=== PATIENT | female | born 1960 | race Caucasian/White ===

== ENCOUNTER 2017-10-12 17:28 | Emergency (ER) | payer OTHER ==
[2017-10-12 17:34] VITALS: BP 131/81; PULSE 77; TEMP 98.7; BMI 39.4
--- NOTE | 2017-10-12 17:37 | PDOC ---
Rapid Medical Evaluation Chief Complaint: Pain Time Seen by Provider: 10/12/17 17:31 Medical Evaluation: Allergies Allergy/AdvReac Type Severity Reaction Status Date / Time celecoxib [From Celebrex] Allergy stomach Verified 01/10/17 09:43 pain corn Allergy diarrhea Verified 01/10/17 09:43 duloxetine HCl Allergy Verified 05/31/16 16:37 [From Cymbalta] fentanyl [From Duragesic] Allergy Rash Verified 01/10/17 09:43 gabapentin [From Neurontin] Allergy Verified 05/31/16 16:37 ibuprofen Allergy Swelling Verified 01/10/17 09:43 milk Allergy diarrhea Verified 01/10/17 09:43 NSAIDS (Non-Steroidal Allergy Difficulty Verified 05/31/16 17:55 Anti-Inflamma Breathing paroxetine HCl [From Paxil] Allergy Rash Verified 01/10/17 09:43 pregabalin [From Lyrica] Allergy Rash Verified 05/31/16 17:55 tapentadol HCl [From Nucynta] Allergy Rash Verified 01/10/17 09:43 wheat Allergy diarrhea Verified 01/10/17 09:43 acetaminophen AdvReac swelling, Verified 01/10/17 09:43 nausea, diarrhea baclofen AdvReac headache, Verified 02/18/17 11:15 incontinence 10/12/17 17:32 I have performed a brief in-person evaluation of this patient. The patient presents with a chief complaint of: RLQ pain to back x 2 hours, nausea since Apr "because stomach lining is messed up", 8/10 pain, hx of ovarian cysts, gastritis hx of hysterectomy, appendectomy, cholecystectomy, 3 breast reductions Pertinent physical exam findings: no apparent distress I have ordered the following: CBC, CMP, lipase, UA, UCx The patient will proceed to the ED for further evaluation. Discharge Disposition - Diagnosis Abdominal pain - Referrals - Patient Instructions - Post Discharge Activity
[2017-10-12 18:07] LABS: BASO % 0.5 % (0-2.0); EOS % 1.9 % (0-4.5); HEMATOCRIT 40.8 % (32.4-45.2); HEMOGLOBIN 13.4 GM/dL (10.7-15.3); LYMPH % 40.7 % (8-40); MCH 28.8 pg (25.7-33.7); MCHC 32.8 g/dl (32.0-36.0); MEAN CELL VOLUME 87.9 fl (80-96); MEAN PLT VOLUME 9.6 fl (7.5-11.1); MONO % 7.7 % (3.8-10.2); NEUT % 49.2 % (42.8-82.8); PLATELET COUNT 186 K/MM3 (134-434); RBC 4.64 M/mm3 (3.60-5.2); RDW 14.9 % (11.6-15.6); WHITE BLOOD COUNT 8.1 K/mm3 (4.0-10.0)
[2017-10-12 18:09] LABS: URINE APPEARANCE CLEAR; URINE BILIRUBIN NEGATIVE (NEGATIVE); URINE BLOOD 1+ (NEGATIVE); URINE COLOR STRAW; URINE GLUCOSE (UA) NEGATIVE (NEGATIVE); URINE KETONE NEGATIVE (NEGATIVE); URINE LEUK ESTERASE NEGATIVE (NEGATIVE); URINE NITRITE NEGATIVE (NEGATIVE); URINE PROTEIN NEGATIVE (NEGATIVE); URINE UROBILINOGEN NEGATIVE mg/dL (0.2-1.0)
[2017-10-12 18:12] LABS: EPI CELLS RARE /HPF (FEW)
[2017-10-12 18:46] LABS: ALBUMIN 3.6 g/dl (3.4-5.0); ALK PHOS 103 U/L (45-117); ANION GAP 7 (8-16); BILIRUBIN,TOTAL 0.2 mg/dL (0.2-1.0); BLOOD UREA NITROGEN 9 mg/dL (7-18); CALCIUM 8.7 mg/dL (8.5-10.1); CHLORIDE 105 mmol/L (98-107); CO2 27 mmol/L (21-32); CREATININE 0.7 mg/dL (0.55-1.02); GLUCOSE,RANDOM 111 mg/dL (74-106); POTASSIUM 3.9 mmol/L (3.5-5.1); SGOT/AST 16 U/L (15-37); SGPT/ALT 24 U/L (12-78); SODIUM 139 mmol/L (136-145)
== END 2017-10-12 19:33 | disposition left against medical advice (07) ==
LOC: JER 17:28
DX: R10.84 Generalized abdominal pain (principal); Z87.19 Personal history of other diseases of the digestive system; Z87.42 Personal history of other diseases of the female genital tract
CPT/HCPCS: 36415; 80053; 81003; 81015; 83690; 85025; 87086; 99281-25

== ENCOUNTER → 2018-07-24 | Day surgery (SDC) | payer OTHER ==
--- NOTE | 2018-07-25 18:32 | PATH ---
Surgical Pathology Report Patient Name: REBEKA DIEHL [facility]. Rec. #: [id number] /Age/Gender: 1960 (Age: 58) / F Account: [id number] Location: [facility] Taken: 07/24/2018 Received: 07/24/2018 Reported: 07/25/2018 Physicians: Monica Arvizu M.D. Specimen(s) Received 2.2 CM MASS LEFT BREAST CORE 4:00 Clinical History History of breast breast reduction 18 years ago Palpable mass Ultrasound findings: Suspicious Final Diagnosis BREAST, LEFT, 4:00, ULTRASOUND GUIDED CORE BIOPSY: INVASIVE DUCTAL CARCINOMA, POORLY DIFFERENTIATED, AT LEAST 1.2 CM IN THIS MATERIAL. Results of Estrogen Receptor (ER) and Progesterone Receptor (OR) studies performed on block "1" at [facility] are as follows: ER (clone [id number] mouse monoclonal antibody by Leica): 0% nuclear staining (Negative). OR (clone16 mouse monoclonal antibody by Leica): 0% nuclear staining (Negative). Comment: Immunohistochemical stain performed and interpreted at [facility] show E-cadherin is positive, supportive of ductal phenotype. Results of Her2 (IHC) & Ki-67 studies are pending and will be reported separately. Findings discussed with Nurse Delano. Positive and negative controls (internal if applicable) show appropriate results. Formalin fixation and cold ischemic times are within current ASCO/CAP recommendations for ER, OR and Her2 testing. Electronically Signed Blanquita Milan M.D. Addendum Reported: 07/31/2018 Addendum Diagnosis Results of Her2 (IHC) & Ki-67 studies performed on block "1" at [place], [place] ([id number]) are as follows: Her2 IHC (EP3 from [employer], formerly known as [id number], using Quinn Polymer Refine detection kit): 1+ (Negative). Ki-67: ~65-70% (High proliferative index). Positive and negative controls (internal if applicable) show appropriate results. Blanquita Milan M.D. Gross Description Received in formalin labeled "left breast 4:00," are 6 jeffers-yellow, cylindrical portions of fibroadipose tissue ranging from 0.4-1.7 cm in length and averaging 0.1 cm in diameter. The specimen is submitted in toto in one cassette. Time to formalin fixation: Less than one minute Total formalin fixation time: Approximately 9 hours. 07/24/201807/24/2018
== END | disposition home or self-care (01) ==
LOC: JRADUS-SUR 07:36 → JRADUS 07:36
PROVIDERS: ATTEND Nurse Practitioner Family
PROC: 0HBU3ZX Excision of Left Breast, Percutaneous Approach, Diagnostic (ICD-10-PCS; principal; 2018-07-24)
DX: C50.912 Malignant neoplasm of unspecified site of left female breast (principal)
CPT/HCPCS: 19083; 87899; 88305-TC; 88342-TC; A4648

== ENCOUNTER 2018-08-09 05:23 | Day surgery (SDC) | payer OTHER ==
[2018-08-08 11:38] VITALS: BMI 35.8
[2018-08-09] MEDS ORDERED: ISOSULFAN BLUE 10 MG/ML VIAL SQ ONE (11:53)
[2018-08-09] MEDS ORDERED: LIDOCAINE HCL 1%, 10 MG/ML (20ML VIAL) ONE (11:53)
[2018-08-09] MEDS ORDERED: LIDOCAINE HCL/PF 2% SDV 5ML VIAL ONE (12:49)
[2018-08-09] MEDS ORDERED: PROPOFOL 20 ML ONE ×2 (12:49)
[2018-08-09] MEDS ORDERED: ceFAZolin SODIUM 1 GM VIAL ONE (12:49)
[2018-08-09] MEDS ORDERED: MIDAZOLAM HCL 2 MG/2 ML SINGLE DOSE VIAL ONE (12:49)
[2018-08-09] MEDS ORDERED: ceFAZolin SODIUM 1 GM VIAL IVPB ONE (13:10)
[2018-08-09] MEDS ORDERED: METHYLENE BLUE 1% 10 MG/1 ML VIAL IVPUSH ONE (13:30)
[2018-08-09] MEDS ORDERED: DEXAMETHASONE SOD PHOSPHATE 4 MG/1 ML VIAL ONE (13:51)
[2018-08-09] MEDS ORDERED: LIDOCAINE HCL 1%, 10 MG/ML (20ML VIAL) NR ONE (14:29)
[2018-08-09] MEDS ORDERED: ONDANSETRON 4 MG/2 ML VIAL IVPUSH PRN (14:50)
[2018-08-09] MEDS ORDERED: oxyCODONE HCL 5 MG TABLET PO PRN (14:50)
[2018-08-09] MEDS ORDERED: LACTATED RINGERS SOLUTION 1,000 ML IV SCH (15:00)
[2018-08-09 16:23] VITALS: TEMP 98
[2018-08-09 17:43] VITALS: BP 112/81; PULSE 66
--- NOTE | 2018-08-10 10:10 | OP ---
DATE OF OPERATION: 08/09/2018 PREOPERATIVE DIAGNOSIS: Left breast cancer. POSTOPERATIVE DIAGNOSIS: Left breast cancer. PROCEDURE: Left breast ultrasound-guided wire localized lumpectomy and sentinel node biopsy. SURGEON: Lacie Tyler MD ANESTHESIA: General. ESTIMATED BLOOD LOSS: Minimal. COMPLICATIONS: None. This was a sterile procedure. INDICATION: Patient presented with a screening mammogram that noted a new density in the lower outer left breast. An ultrasound showed a 1.6-cm solid, irregular mass. She underwent a needle biopsy that showed ER/ RI negative, invasive duct carcinoma. I discussed her options with her. We decided on a lumpectomy and a sentinel node biopsy. The procedure was discussed with her. All of her questions answered. PROCEDURE IN DETAIL: Patient was brought to [facility] in [place]. I met her in Nuclear Medicine where technetium-labeled sulfur colloid was injected by me as 2 injections, one at the 4 o'clock areolar border and the second intradermal injection overlying the tumor in the left 4 o'clock location, 10-12 cm from the nipple. She was then brought up to the operating room, and after induction of general anesthesia, an intraoperative ultrasound was performed, and the lesion in the left 4 o'clock location, 10-12 cm from the nipple was localized with a Kopans wire. Next, 2.5 mL of methylene blue diluted with 2.5 mL of injectable saline was injected by me into the left subareolar plexus. The breast was massaged for 5 minutes. The left breast and axilla were then prepped and draped in usual sterile fashion. A 4-cm incision was made in the left axilla, carried down to the clavipectoral fascia to identify 2 lymph nodes. One of them was blue and hot. The other was hot but not blue. This was sent as 1 specimen; however, sentinel lymph node number 1, blue and hot. There was no other blue dye radioactivity initially in the axilla. Therefore, once hemostasis was assured, the left breast lumpectomy was performed. A radial incision was made in the outer left breast, and the wire was used as a guide to get down to the area of interest which was excised en bloc and tagged with a long stitch lateral, short stitch superior. Grossly, I felt I was close posteriorly. Therefore, I took a new posterior margin with a stitch at the old margin. Both specimens were sent to Pathology for permanent section. I went back into the axilla. At that point, I felt there was some more radioactivity. I, therefore, excised another lymph node which ex vivo had minimal counts. Therefore, sent it as left axillary non-sentinel node. There was no other radioactivity, blue dye, or pathologic- feeling lymph nodes in the left axilla. Therefore, once hemostasis was assured, the incision was closed in a routine fashion with interrupted 3-0 Vicryl and running 4-0 Prolene. The lumpectomy incision was a large defect. Therefore, the parenchyma was approximated with interrupted 2-0 Vicryl, skin approximated with interrupted 3-0 Vicryl and running 4-0 Prolene. A sterile dressing with Tegaderm and 4 x 4's applied. She tolerated the procedure well, was extubated on the operating room table. A mammary binder was applied, and she was taken to Recovery in good condition. Anabel [id number] MTDD
--- NOTE | 2018-08-14 14:19 | PATH ---
Surgical Pathology Report Patient Name: REBEKA DIEHL [facility]. Rec. #: [id number] /Age/Gender: 1960 (Age: 58) / F Account: [id number] Location: [facility] Taken: 08/09/2018 Received: 08/10/2018 Reported: 08/14/2018 Physicians: Lacie Tyler M.D. Specimen(s) Received A: LEFT AXILLARY SENTINEL LYMPH NODE #1 B: LEFT BREAST MASS C: LEFT BREAST MASS, NEW POSTERIOR MARGIN D: LEFT AXILLARY NON SENTINEL LYMPH NODE Clinical History Left breast cancer History of reduction mammoplasty Final Diagnosis A. AXILLARY SENTINEL LYMPH NODE #1, LEFT, EXCISION: TWO LYMPH NODES NEGATIVE FOR CARCINOMA (0/2). B. BREAST, LEFT, LUMPECTOMY: INVASIVE DUCTAL CARCINOMA, POORLY DIFFERENTIATED (TUBULE SCORE: 3/3, NUCLEAR GRADE: 3/3, MITOTIC SCORE: 3/3; TOTAL LADONNA SCORE: 9/9). INVASIVE CARCINOMA MEASURES 2.2 CM IN GREATEST MICROSCOPIC DIMENSION. FOCAL DUCTAL CARCINOMA IN SITU (DCIS), SOLID AND MICROPAPILLARY TYPES, HIGH NUCLEAR GRADE WITH ASSOCIATED CENTRAL NECROSIS. NO LYMPHOVASCULAR INVASION IDENTIFIED. SURGICAL MARGINS ARE UNINVOLVED BY CARCINOMA; CARCINOMA IS 3 MM FROM CLOSEST ANTERIOR MARGIN. SEE SPECIMEN C FOR FINAL POSTERIOR MARGIN. REMAINDER OF BREAST TISSUE SHOWS FIBROCYSTIC CHANGES AND ASSOCIATED RARE MICROCALCIFICATIONS. PRIOR BIOPSY SITE CHANGES PRESENT. PATHOLOGIC STAGE (pTNM): pT2 pN0(sn). SEE INVASIVE CARCINOMA CASE SUMMARY BELOW. C. BREAST, LEFT, NEW POSTERIOR MARGIN, EXCISION: BENIGN BREAST TISSUE AND SKELETAL MUSCLE. D. AXILLARY NON-SENTINEL LYMPH NODE, LEFT, EXCISION: BENIGN FIBROADIPOSE TISSUE. NO LYMPHOID TISSUE IDENTIFIED. Comments Breast Invasive Carcinoma: Surgical Pathology Case Summary (Based on AJCC TNM 8 th edition) Procedure _X_ Excision (less than total mastectomy) Specimen Laterality _X_ Left Tumor Size _X_ Greatest dimension of largest invasive focus >1 mm (specify exact measurement) (millimeters): _22__ mm Histologic Type _X_ Invasive carcinoma of no special type (ductal, not otherwise specified) Histologic Grade (Ladonna Histologic Score) Glandular (Acinar)/Tubular Differentiation _X_ Score 3 (<10% of tumor area forming glandular/tubular structures) Nuclear Pleomorphism _X_ Score 3 Mitotic Rate _X__ Score 3 Overall Grade _X_ Grade 3 (scores of 9) Tumor Focality _X_ Single focus of invasive carcinoma Ductal Carcinoma In Situ (DCIS) _X__ DCIS is present in specimen _X_ Negative for extensive intraductal component (EIC) Margins Invasive Carcinoma Margins _X__ Uninvolved by invasive carcinoma Distance from closest margin (millimeters): 3 mm Closest margin: Anterior DCIS Margins _X__ Uninvolved by DCIS Distance from closest margin (millimeters): Widely free Regional Lymph Nodes Number of Lymph Nodes with Macrometastases (>2 mm): 0 Number of Lymph Nodes with Micrometastases (>0.2 mm to 2 mm and/or >200 cells): 0 Number of Lymph Nodes with Isolated Tumor Cells (=0.2 mm and =200 cells): 0 Number of Lymph Nodes Examined: 2 Number of [place] Nodes Examined : 2 Treatment Effect _X__ No known presurgical therapy Lymphovascular Invasion _X__ Not identified Pathologic Stage Classification (pTNM, AJCC 8th Edition) Primary Tumor (Invasive Carcinoma) (pT) _X__ pT2: Tumor >20 mm but =50 mm in greatest dimension Regional Lymph Nodes (pN) Modifier (required only if applicable) _X__ (sn): [place] node(s) evaluated. Category (pN) _X__ pN0: No regional lymph node metastasis identified or ITCs only Biomarker Studies Results of ER and OH studies performed on prior biopsy ([id number]) at [facility] are as follows: ER (clone 6F11 mouse monoclonal antibody by Leica): 0% nuclear staining (Negative). OH (clone16 mouse monoclonal antibody by [employer]): 0% nuclear staining (Negative). Results of Her2 (IHC) & Ki-67 studies performed on prior biopsy ([id number]) are as follows: Her2 IHC (EP3 from [employer], formerly known as [id number], using Quinn Polymer Refine detection kit): 1+ (Negative). Ki-67: ~65-70% (High proliferative index). Electronically Signed Blanquita Milan M.D. Gross Description A. Received in formalin labeled "left axillary sentinel lymph node #1," are 2 lymph nodes with attached fat measuring 1.0 x 0.6 x 0.4 cm and 3.4 x 2.0 x 1.0 cm. The lymph nodes are sectioned and entirely submitted in 6 cassettes as follows: 1-one bisected lymph node; 2-6-one lymph node (one bisected section each in cassettes 3/4, 5/6). B. Received in formalin, labeled "left breast lumpectomy," is a 13.0 x 9.5 x 3.8 cm. jeffers-yellow, irregular, portion of fibroadipose tissue. There is no needle localization wire present. There is a short suture marking the superior aspect and a long suture marking the lateral aspect, per the surgeon. There is no skin or nipple present. The specimen is inked as follows: superior and lateral blue; inferior green; medial yellow; anterior red; deep black. The specimen is serially sectioned from medial to lateral. Sectioning reveals a 2.2 x 2.0 x 1.6 cm jeffers, indurated mass at 0.3 cm from the anterior margin, 0.7 cm from the superior margin, 0.8 cm from the deep margin and 0.8 cm from the medial margin. There is a lewis metallic biopsy clip identified within the mass. Medication Nurse sections are submitted in 12 cassettes as follows: 1-full face section of mass; 2-3-mass with anterior margin; 4-5-mass with deep margin; 6-8-mass with medial margin; 9-10-mass with superior margin; 11-inferior margin; 12-lateral margin. Total formalin fixation time: Approximately 24 hours C. Received in formalin labeled "left breast lumpectomy new posterior margin," is a 5.0 x 3.5 x 1.5 cm portion of fibroadipose tissue with a suture marking the old margin, per the surgeon. The new margin is inked blue and the specimen is serially sectioned. The specimen is entirely and sequentially submitted in 7 cassettes. D. Received in formalin labeled "left axillary non-sentinel lymph node," is a 4.4 x 3.0 x 0.3 cm portion of yellow, lobulated adipose tissue, possibly containing a lymph node. No definite lymph node is identified. The specimen is entirely submitted in 2 cassettes. 08/10/2018 saudi08/10/2018
== END 2018-08-09 17:00 | disposition home or self-care (01) ==
LOC: JASU-SURG 05:23
PROVIDERS: ATTEND Surgery
PROC: 0HBU0ZZ Excision of Left Breast, Open Approach (ICD-10-PCS; principal; 2018-08-09 12:00)
DX: C50.912 Malignant neoplasm of unspecified site of left female breast (principal)
CPT/HCPCS: 78195-TC; 88307-TC; 94760; A9541

== ENCOUNTER 2018-10-18 09:14 | Day surgery (SDC) | payer OTHER ==
[2018-10-18 10:25] VITALS: BMI 36.3
[2018-10-18] MEDS ORDERED: PROPOFOL 20 ML ONE (10:48)
[2018-10-18] MEDS ORDERED: LIDOCAINE HCL/PF 2% SDV 5ML VIAL ONE (10:48)
[2018-10-18 12:20] VITALS: TEMP 98
[2018-10-18 12:22] VITALS: PULSE 88
[2018-10-18 12:30] VITALS: BP 125/77
--- NOTE | 2018-10-20 12:29 | PATH ---
Surgical Pathology Report Patient Name: REBEKA DIEHL [facility]. Rec. #: [id number] /Age/Gender: 1960 (Age: 58) / F Account: [id number] Location: [facility] Taken: 10/18/2018 Received: 10/18/2018 Reported: 10/20/2018 Physicians: Blanquita Méndez M.D. Specimen(s) Received A: 2ND PORTION DUODENUM B: ANTRUM C: GE JUNCTION Clinical History Abdominal pain Postoperative diagnosis: Gastritis Final Diagnosis A. SECOND PORTION OF DUODENUM, BIOPSY: DUODENAL MUCOSA WITH NO PATHOLOGIC FINDINGS. B. ANTRUM, BIOPSY: MILD CHRONIC GASTRITIS. IMMUNOSTAIN IS NEGATIVE FOR H. PYLORI ORGANISMS. C. GE JUNCTION, BIOPSY: COLUMNAR (GASTRIC CARDIA-TYPE) MUCOSA SHOWING MODERATE CHRONIC INFLAMMATION. NEGATIVE FOR INTESTINAL METAPLASIA . NO ESOPHAGEAL (SQUAMOUS) MUCOSA IS IDENTIFIED. Electronically Signed Liane Bello M.D. Gross Description A. Received in formalin, labeled "second portion of duodenum" is a jeffers, irregular portion of soft tissue measuring 0.3 cm. in greatest dimension. The specimen is submitted in toto in one cassette. B. Received in formalin, labeled "antrum" is a jeffers, irregular portion of soft tissue measuring 0.3 cm. in greatest dimension. The specimen is submitted in toto in one cassette. C. Received in formalin, labeled "GE junction" is a jeffers, irregular portion of soft tissue measuring 0.3 cm. in greatest dimension. The specimen is submitted in toto in one cassette. 10/18/2018 saudi10/18/2018
== END 2018-10-18 12:25 | disposition home or self-care (01) ==
LOC: FASU-ENDO 09:14
PROVIDERS: ATTEND Internal Medicine Gastroenterology
PROC: 0DB68ZX Excision of Stomach, Via Natural or Artificial Opening Endoscopic, Diagnostic (ICD-10-PCS; 2018-10-18)
PROC: 0DB48ZX Excision of Esophagogastric Junction, Via Natural or Artificial Opening Endoscopic, Diagnostic (ICD-10-PCS; 2018-10-18)
PROC: 0DB98ZX Excision of Duodenum, Via Natural or Artificial Opening Endoscopic, Diagnostic (ICD-10-PCS; principal; 2018-10-18 11:27)
DX: K29.50 Unspecified chronic gastritis without bleeding (principal); R10.13 Epigastric pain; R11.2 Nausea with vomiting, unspecified
CPT/HCPCS: 88305-TC; 88342-TC

== ENCOUNTER 2019-07-24 08:02 | Inpatient (IN) | payer OTHER ==
[2019-07-23 11:07] VITALS: BMI 33.9
[2019-07-24] MEDS ORDERED: MIDAZOLAM HCL 2 MG/2 ML SINGLE DOSE VIAL ONE ×3 (09:25→09:44)
[2019-07-24] MEDS ORDERED: BUPIVACAINE HCL/PF 0.25% (2.5MG/ML) 10 ML VIAL ONE (09:27)
[2019-07-24] MEDS ORDERED: DEXAMETHASONE SOD PHOSPHATE/PF 10 MG/ML SDV ONE (09:28)
[2019-07-24] MEDS ORDERED: fentaNYL CITRATE 250 MCG/5 ML VIAL ONE ×2 (09:44→13:07)
[2019-07-24] MEDS ORDERED: ceFAZolin 2 GRAM PREMIX BAG IVPB ONE (10:30)
[2019-07-24] MEDS ORDERED: HYDROmorphone HCl 2 MG/ML VIAL ONE ×2 (10:44→14:29)
[2019-07-24] MEDS ORDERED: ONDANSETRON 4 MG/2 ML VIAL ONE (11:30)
[2019-07-24] MEDS ORDERED: LIDOCAINE HCL 2% JELLY (5 ML/TUBE) ONE (11:30)
[2019-07-24] MEDS ORDERED: DEXAMETHASONE SOD PHOSPHATE 4 MG/1 ML VIAL ONE (11:30)
[2019-07-24] MEDS ORDERED: LIDOCAINE HCL/PF 2% SDV 5ML VIAL ONE (11:30)
[2019-07-24] MEDS ORDERED: hydrALAZINE HCL 20 MG/ML VIAL ONE (11:30)
[2019-07-24] MEDS ORDERED: METOPROLOL TARTRATE 5 MG/5 ML VIAL ONE (11:31)
[2019-07-24] MEDS ORDERED: ONDANSETRON 4 MG/2 ML VIAL IVPB PRN (12:09)
[2019-07-24] MEDS ORDERED: oxyCODONE HCL 5 MG TABLET PO PRN (12:20)
[2019-07-24] MEDS ORDERED: LACTATED RINGERS SOLUTION 1,000 ML/1,000 ML INFUS.BAG IV SCH (12:30)
[2019-07-24] MEDS ORDERED: PROMETHAZINE HCL 25 MG/1 ML VIAL IVPUSH PRN (14:07)
--- NOTE | 2019-07-24 14:20 | OP ---
DATE OF OPERATION: 07/24/2019 PREOPERATIVE DIAGNOSIS: Left breast cancer. POSTOPERATIVE DIAGNOSIS: Left breast cancer. PROCEDURE: Bilateral total mastectomy. SURGEON: Lacie Jean MD SIEVE MAKER: Chung Banks MD ANESTHESIA: General and pectoral blocks bilaterally. ESTIMATED BLOOD LOSS: 100 mL DRAINS: None. COMPLICATIONS: None. This was a sterile procedure. INDICATIONS FOR PROCEDURE: The patient had a left lumpectomy and sentinel node biopsy, received adjuvant chemotherapy, and now is planned for radiation. She decided to have a mastectomy instead of going ahead with breast conservation. She met with Dr. Banks from Plastic Surgery who considered bilateral expanders at the time of surgery. The procedure of a bilateral mastectomy with bilateral expanders was discussed and all the questions answered. PROCEDURE IN DETAIL: Patient was brought to [facility] in [place]. She had pectoral blocks done by the anesthesiologist in holding and then taken into the operating room. After induction of general anesthesia and IV antibiotics, as well as a Maria placement, both breasts and axillae were prepped and draped in the usual sterile fashion. First, the left mastectomy was performed. The skin marked by Dr. Banks was excised sharply with a 10 blade and superior, inferior, medial and lateral flaps were raised. Using electrocautery, the breast was then reflected off the pectoralis muscle, tagged with a long stitch lateral, short stitch superior that included the nipple-areolar complex. This was sent to Pathology for permanent section. Hemostasis was assured with electrocautery. Next, gown, gloves, and instruments were changed, and the right mastectomy was performed. Again, the brooks made by Dr. Banks were sharply incised with a 10 blade and superior, inferior, medial and lateral flaps were raised to do a complete total mastectomy to include the nipple-areolar complex. This was tagged with a long stitch lateral, short stitch superior and sent to Pathology for permanent section as a right mastectomy. Once hemostasis was assured with electrocautery, the patient was then left for Dr. Banks to finish the reconstructive part of this procedure. LACIE JEAN M.D. [id number]
[2019-07-24] MEDS ORDERED: PROPOFOL 20 ML ONE ×2 (14:57)
[2019-07-24] MEDS ORDERED: LABETALOL HCL 5 MG/1 ML (100MG/20 ML VIAL) ONE (14:57)
--- NOTE | 2019-07-24 15:45 | OP ---
Operative Note - Note: Operative Date: 07/24/19 Pre-Operative Diagnosis: History of Breast Cancer Operation: Immediate Bilateral Breast Reconstruction, Insertion of Tissue Expanders, Insertion of Alloderm Sheets, Repair Total Symmastia Implants: [place] CPX-4 Tissue Expanders With Tabs 550cc Post-Operative Diagnosis: Same as Pre-op Surgeon: Chung Banks Anesthesiologist/LOGGER: Gaby Feldman Anesthesia: General Operative Report Dictated: Yes
--- NOTE | 2019-07-24 15:57 | SURG ---
Surgery Technical Support Professional Note Technical Support Professional: Richard Dalton PA-C Date of Service: 07/24/19 Diagnosis: Breast cancer Procedure: Immediate Bilateral Breast Reconstruction, Insertion of Tissue Expanders, Insertion of Alloderm Sheets, Repair Total Symmastia I was present for the entirety of the operative procedure. For further detail, please refer to operative report. Visit type - Case Type Case Type: Scheduled - Emergency Emergency Visit: No - New patient This patient is new to me today: Yes Date on this admission: 07/24/19 - Critical Care Critical Care patient: No
--- NOTE | 2019-07-24 16:12 | OP ---
DATE OF OPERATION: 07/24/2019 PREOPERATIVE DIAGNOSIS: History of breast cancer. POSTOPERATIVE DIAGNOSIS: History of breast cancer. PROCEDURE PERFORMED: Immediate bilateral breast reconstruction with insertion of tissue expanders and insertion of Alloderm sheets and repair of a complete symmastia. SURGEON: Chung Main MD [employer] ASSISTANTS TEACHER: MDAISON Heredia ANESTHESIA: General. DESCRIPTION OF PROCEDURE: The patient is on the operating table at the conclusion of bilateral modified radical mastectomies performed by Dr. Bailey. Of note, because of the patient's history of breast reduction surgery in the past and because of a severe medial displacement of the nipple areolar complexes, the surgery was performed through a Abarca pattern skin excision shifted medially to accommodate the existing nipple areolar complex position. Of note, during the mastectomy, a medial dissection bilaterally created a disconnection of the midline tissues from the sternum below resulting in a symmastia extending over the full length of the sternum up to the sternal notch. This requires repair as well at the time of reconstruction. The patient is on the operating table, and the right breast was addressed first. The subpectoral plane was entered at the inferolateral margin of the pectoralis major muscle, and dissection continued in the submuscular plane. A portion of the inferior insertion of the pectoralis muscle was divided, and a pocket was created to accommodate the planned 550-mL [place] CPX for tissue php architect. The php architect was inflated with 50 mL of normal saline after all air was removed. The php architect was placed in the submuscular pocket, and orientation was confirmed by observation of the position of the suture tabs. The inferior most (6 o'clock) suture tab was sutured using 2-0 Vicryl suture to the underlying tissues. A medium sized sheet of perforated Alloderm was brought onto the field and soaked with normal saline for approximately 10 minutes. It was then trimmed to size and sutured superomedially to the inferolateral border of the pectoralis major muscle and reflected over the inferolateral portion of the implant and sutured at the level of the inframammary fold using 2-0 Vicryl suture in interrupted horizontal mattress fashion. Two 15-Emirati round Jayden-Reyes drains were inserted through separate stab incisions in the anterior axillary line, 1 directed inferiorly and 1 directed towards the axilla. These were sutured in place with 2-0 nylon suture. The midline structures were completely from the sternum below, and this was now re-closed in several layers with Biosyn suture on each side and 2-0 nylon suture in horizontal mattress fashion over pledgets in the midline closing to the periosteum of the sternum below. This was performed along the full length of the sternum. The skin wound was then closed in layered fashion. A 2-0 silk suture was used as a guillen suture along the inframammary fold. This placed much more medially than is typically placed due to the previous surgery. Deep tissue were then closed with No. 3-0 and 4-0 Biosyn suture in interrupted buried fashion and a 4-0 V-Lock 90 suture was used in a deep intradermal fashion for skin. At the conclusion of the procedure, 50 mL of saline was present in the tissue php architect. A similar procedure was performed on the left breast, and the same size and style tissue php architect was used. At the conclusion of the procedure, 50 mL was instilled in the left tissue php architect as well. Sterile dressings were then applied and secured with a surgical bra. This included a compressive dressing in the midline to help support the midline repair. The patient was then awoken from anesthesia without any difficulty and taken from the operating room to the recovery room in satisfactory condition having tolerated the procedure well. CHUNG MAIN M.D. /[id number]
[2019-07-24] MEDS ORDERED: DEXTROSE 5%-WATER - 50 ML IVPB ONE (17:42)
[2019-07-24] MEDS ORDERED: ceFAZolin SODIUM 1 GM VIAL ONE (17:42)
[2019-07-24] MEDS: LACTATED RINGERS SOLUTION 1,000 ML IV SCH (17:46)
[2019-07-24] MEDS: CEFAZOLIN 1 GM in DEXTROSE 5%-WATER - 50 ML IVPB SCH (17:47)
[2019-07-24] MEDS: ONDANSETRON 4 MG/2 ML VIAL IVPUSH PRN (18:13)
[2019-07-24] MEDS: HYDROmorphone HCl 2 MG/ML VIAL IVPB PRN ×2 (19:08→22:46)
[2019-07-25] MEDS ORDERED: ceFAZolin SODIUM 1 GM VIAL ONE ×2 (02:05→09:05)
[2019-07-25] MEDS ORDERED: DEXTROSE 5%-WATER - 50 ML IVPB ONE ×2 (02:05→09:05)
[2019-07-25] MEDS: CEFAZOLIN 1 GM in DEXTROSE 5%-WATER - 50 ML IVPB SCH ×2 (02:07→09:31)
[2019-07-25] MEDS: LACTATED RINGERS SOLUTION 1,000 ML IV SCH (02:23)
[2019-07-25] MEDS: ONDANSETRON 4 MG/2 ML VIAL IVPUSH PRN (02:23)
--- NOTE | 2019-07-25 08:20 | PN ---
Progress Note (short form) - Note Progress Note: POD #1 Doing well. Wounds clean and dry. Bridge between breasts viable. Modest NAKUL drainage 25-35cc each x 4. Patient will be discharged with drains. Nurses will instruct in drain care. She will stay on antibiotics until drains removed. To be seen in office Tuesday.
[2019-07-25] MEDS: HYDROmorphone HCl 2 MG/ML VIAL IVPB PRN (09:10)
[2019-07-25 12:21] VITALS: BP 139/94; PULSE 72; TEMP 98.3
--- NOTE | 2019-07-30 12:08 | PATH ---
Surgical Pathology Report Patient Name: REBEKA DIEHL Med. Rec. #: [id number] /Age/Gender: 1960 (Age: 59) / F Account: [id number] Location: [facility] MED/SURG Taken: 07/24/2019 Received: 07/24/2019 Reported: 07/30/2019 Physicians: Lacie Tyler M.D. Specimen(s) Received A: BREAST, MASTECTOMY LEFT B: BREAST, MASTECTOMY RIGHT C: REMOVED MEDIPORT Clinical History Left breast cancer Final Diagnosis A. BREAST, LEFT, MASTECTOMY: BENIGN BREAST PARENCHYMA WITH DENSE FIBROSIS, CHRONIC INFLAMMATION, HISTIOCYTIC AND GIANT CELL INFILTRATE CONSISTENT WITH CHANGES OF PRIOR PROCEDURE AND RARE MICROCALCIFICATIONS. NIPPLE WITH CHRONIC INFLAMMATION AND ECTATIC DUCTS. SKIN WITHOUT SIGNIFICANT PATHOLOGIC FINDINGS. B. BREAST, RIGHT, MASTECTOMY: BENIGN BREAST PARENCHYMA WITH RARE MICROCALCIFICATIONS. NIPPLE WITH MILD CHRONIC INFLAMMATION AND ECTATIC DUCTS. SKIN WITHOUT SIGNIFICANT PATHOLOGIC FINDINGS. C. MEDIPORT, REMOVAL: DELI DEPARTMENT MANAGER. MACROSCOPIC DIAGNOSIS. Electronically Signed Blanquita Milan M.D. Gross Description A. Received in formalin, labeled "left mastectomy," is a 1338 gram, 22.0 x 21.0 x 4.5 cm. left mastectomy specimen with a short suture marking the superior aspect and a long suture marking the lateral aspect of the specimen, per the surgeon. The anterior surface displays a 25.0 x 11.0 cm jeffers, irregular portion of skin with a 1.2 cm in diameter nipple. The deep margin is inked black and the anterior soft tissue margin is inked green. The specimen is serially sectioned from medial to lateral. Sectioning reveals a 5.5 x 3.5 x 3.5 cm focus of dense fibrous tissue in the lower outer quadrant (LOQ). The dense area displays foci of firm fibrous tissue. No definitive residual mass is identified. Latrine Cleaner sections are submitted in 20 cassettes as follows: 1-serially sectioned nipple; 2-subareolar shave; 3-5-LOQ dense area with deep margin; 5-28-bblfwqgegw front desk representative sections from LOQ dense area; 13-14-upper outer quadrant; 15-16-upper inner quadrant; 17-18-lower inner quadrant; 19-anterior soft tissue margin; 20-skin. Total formalin fixation time: Approximately 29 hours B. Received in formalin, labeled "right mastectomy," is a 1147 gram, 25.0 x 21.5 x 4.5 cm. right mastectomy specimen with a short suture marking the superior aspect and a long suture marking the lateral aspect of the specimen, per the surgeon. The anterior surface displays a 20.0 x 11.5 cm jeffers, irregular portion of skin with a 1.2 cm in diameter nipple. The deep margin is inked black and the anterior soft tissue margin is inked red. The specimen is serially sectioned from lateral to medial. Sectioning reveals foci of thin white fibrous tissue. Latrine Cleaner sections are submitted in 14 cassettes as follows: 1-serially sectioned nipple; 2-subareolar shave; 3-4-upper outer quadrant; 5-7-lower outer quadrant; 8-9-upper inner quadrant; 10-11-lower inner quadrant; 12-anterior soft tissue margin; 13-skin; 14-deep margin. Total formalin fixation time: Approximately 29 hours C. Received fresh labeled "removed Mediport," is a 3.8 x 2.8 x 1.4 cm purple, irregular device, consistent with a port. The port displays a 26 cm in length portion of white tubing extending from one aspect. No soft tissue is present. No sections are submitted, gross only. 07/25/2019 saudi07/25/2019
== END 2019-07-25 11:35 | disposition home or self-care (01) | DRG 583 ==
LOC: JSAMEDAYSX 08:02 → J8W 17:31
PROVIDERS: ADMIT Surgery; ATTEND Surgery
PROC: 0HTV0ZZ Resection of Bilateral Breast, Open Approach (ICD-10-PCS; principal; 2019-07-24 10:00)
PROC: 0HHV0NZ Insertion of Tissue Expander into Bilateral Breast, Open Approach (ICD-10-PCS; 2019-07-24 10:00)
DX: C50.912 Malignant neoplasm of unspecified site of left female breast (principal); Z40.01 Encounter for prophylactic removal of breast
CPT/HCPCS: 88300-TC; 88307-TC; 94760

== ENCOUNTER 2019-08-12 14:06 | Emergency (ER) | payer OTHER ==
[2019-08-12 14:23] VITALS: BMI 32.1
--- NOTE | 2019-08-12 14:24 | PDOC ---
History of Present Illness - General Chief Complaint: Nausea/Vomiting Stated Complaint: VOMITING Time Seen by Provider: 08/12/19 14:24 History Source: Patient Exam Limitations: No Limitations - History of Present Illness Initial Comments: Pt is a 59 yo F, with PMH of breast CA (s/p breast reconstruction), HTN, asthma , and gastritis (last endoscopy Oct 2018), who is presenting with complaints of acute nausea, vomiting, and abdominal cramping. Pt states her children and have been sick at home with similar symptoms. Pt states she awoke last night with nausea and multiple episodes of NBNB vomiting, which continued throughout the day today, unable to tolerate PO intake. Pt states she had abdominal cramping like she may have loose BMs, but had a formed BM this morning. Pt denies any fevers/chills, headache, vision changes, syncope, chest pain, palpitations, SOB, urinary symptoms, diarrhea/constipation, or leg swelling. Allergies: NKDA PCP: Dr. Rajan Heme/Onc: Dr. Mcallister GI: Dr. Méndez Social: Pt uses medical marijuna, but denies issues with vomiting in the past. Pt denies any other cigarette, alcohol, or drug use. Pt denies any recent travel. Sick contacts as above. Surgical: breast reconstruction, hysterectomy, appendectomy, cholecystectomy Family: no relevant history. 08/12/19 15:13 08/12/19 15:36 Past History - Travel Traveled outside of the country in the last 30 days: No Close contact w/someone who was outside of country & ill: No - Past Medical History Allergies/Adverse Reactions: Allergies Allergy/AdvReac Type Severity Reaction Status Date / Time celecoxib [From Celebrex] Allergy stomach Verified 08/12/19 14:19 pain corn Allergy diarrhea Verified 08/12/19 14:19 duloxetine HCl Allergy Verified 08/12/19 14:19 [From Cymbalta] fentanyl [From Duragesic] Allergy Verified 08/12/19 14:19 gabapentin [From Neurontin] Allergy Verified 08/12/19 14:19 ibuprofen Allergy Swelling Verified 08/12/19 14:19 milk Allergy diarrhea Verified 08/12/19 14:19 NSAIDS (Non-Steroidal Allergy Difficulty Verified 08/12/19 14:19 Anti-Inflamma Breathing paroxetine HCl [From Paxil] Allergy Rash Verified 08/12/19 14:19 pregabalin [From Lyrica] Allergy Rash Verified 08/12/19 14:19 tapentadol HCl [From Nucynta] Allergy Rash Verified 08/12/19 14:19 wheat Allergy diarrhea Verified 08/12/19 14:19 acetaminophen AdvReac swelling, Verified 08/12/19 14:19 nausea, diarrhea baclofen AdvReac headache, Verified 08/12/19 14:19 incontinence nortriptyline AdvReac Rash Verified 08/12/19 14:19 Home Medications: Ambulatory Orders Cetirizine HCl [Zyrtec -] 10 mg PO DAILY 07/31/18 Albuterol Sulfate Inhaler - [Ventolin Hfa Inhaler -] 1 - 2 inh PO QID 10/18/18 Cannabidiol (Cbd) Extract [Epidiolex] 1 inh IH DAILY 10/18/18 Amitriptyline HCl [Elavil -] 50 mg PO PRN PRN 07/24/19 Cephalexin [Keflex] 500 mg PO TID 7 Days #30 capsule 07/24/19 Oxycodone HCl 15 mg PO PRN PRN 07/24/19 Oxycodone HCl 15 mg PO QID PRN 7 Days tablet MDD 80 mg 07/24/19 Anemia: No Asthma: Yes (on inhaler) 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) Cardiac Disorders: No CVA: No COPD: No CHF: No Dementia: No Diabetes: Yes (pre diabetes- no meds) GI Disorders: Yes (GERD) Disorders: No HTN: No Hypercholesterolemia: No Liver Disease: Yes (fatty liver) Seizures: No Thyroid Disease: No Other medical history: chromic pain - Surgical History Abdominal Surgery: Yes (HERNIA (later had mesh removal)) Appendectomy: Yes Cholecystectomy: Yes Orthopedic Surgery: No - Psycho Social/Smoking Cessation Hx Smoking History: Former smoker Have you smoked in the past 12 months: No If you are a former smoker, when did you quit?: 30 years ago Information on smoking cessation initiated: No Hx Alcohol Use: No Drug/Substance Use Hx: No (medical) Substance Use Type: Marijuana Hx Substance Use Treatment: No Abd/GI Specific PMHX - Complaint Specific PMHX Colitis: No Diverticulitis: No Gall Bladder Disease: No GERD: Yes Hepatitis: No Irritable Bowel Synd (IBS): No Pancreatitis: No GI Ulcer Disease: No Review of Systems - Review of Systems Able to Perform ROS?: Yes Is the patient limited Georgian proficient: No Constitutional: Yes: Weight Stable. No: Chills, Diaphoresis, Fever, Loss of Appetite, Malaise, Weakness HEENTM: No: Recent change in vision, Nose Congestion, Throat Pain, Throat Swelling, Difficulty Swallowing Respiratory: No: Cough, Orthopnea, Shortness of Breath Cardiac (ROS): No: Chest Pain, Edema, Irregular Heart Rate, Lightheadedness, Palpitations, Syncope, Chest Tightness ABD/GI: Yes: See HPI, Nausea, Poor Appetite, Poor Fluid Intake, Vomiting, Indigestion, Abdominal cramping. No: Abd. Pain w/ defecation, Blood Streaked Bowels, Constipated, Diarrhea, Rectal Bleeding, Tarry Stools : No: Burning, Dysuria, Frequency, Pain, Urgency Musculoskeletal: No: Back Pain, Joint Pain, Muscle Pain, Muscle Weakness Integumentary: No: Rash Neurological: No: Headache, Numbness, Weakness, Unsteady Gait, Dizziness Psychiatric: No: Sleep Pattern Change, Change in Appetite Endocrine: No: Increased Urine, Change in Weight Hematologic/Lymphatic: No: Anemia, Blood Clots, Easy Bleeding, Easy Bruising All Other Systems: Reviewed and Negative *Physical Exam - Vital Signs Last Vital Signs Temp Pulse Resp BP Pulse Ox 98.2 F 133 H 20 142/90 99 08/12/19 14:19 08/12/19 14:19 08/12/19 14:19 08/12/19 14:19 08/12/19 14:19 - Physical Exam Tachycardic (130s on presentation, ~90 on exam), pt afebrile. Pt in NAD, obese body habitus. No active vomiting on exam. Pt alert and oriented x3. motion designer generally intact, muscular strength and sensation intact. No midline spinal tenderness, step-offs, or crepitus. Head normocephalic, atraumatic. Eyes PERRLA, EOMI. Oropharynx without erythema or exudates, no LAD b/l. No nasal congestion. Hearing intact. Clear heart sounds, S1/S2, no JVD, b/l pedal edema, or heart murmur. Clear lung sounds, no respiratory distress, wheezes, crackles, or accessory muscle use. +b/l mastectomy with binder, well-healing surgical scars. Mild epigastric TTP, with no rebound, no guarding. Abdomen soft, non-distended, and with normoactive bowel sounds. No CVA TTP. Skin without jaundice or rash. 08/12/19 15:37 ED Treatment Course - LABORATORY CBC & Chemistry Diagram: 08/12/19 15:07 08/12/19 15:07 Medical Decision Making - Medical Decision Making Pt was seen at bedside, also will be seen by attending Dr. Edwards. Pt presenting with multiple sick contacts in the home, nausea/vomiting, abdominal cramping. No blood in the stool or vomitus. Pt had normal BM this morning, less likely obstruction. Epigastric TTP on exam, consistent with gastritis and discomfort 2/2 vomiting. Provided 4 mg IV zofran, 20 mg IV pepcid, and 1 L IV NS for improvement of nausea, discomfort, and dehydration. Will continue to reassess pt and monitor for symptomatic improvement. ECG: NSR, intervals WNL (Hr 79, NE 124, QRS 82, QTc 433). No TWIs or significant ST segment changes. No significant changes from prior ECG. 08/12/19 15:40 Pt states symptoms greatly improved. CBC with no elevated WBCs, neutrophilic/left shift present, consistent with acute GI illness 08/12/19 15:50 CMP WNL Trop <.05 Lipase WNL Pt able to urinate after IVF, tolerating PO gatorade with no further episodes of vomiting. Pt safe for d/c to home with and PCP f/u. Strict return precautions provided with pt understanding. 08/12/19 15:54 Discharge - Discharge Information Problems reviewed: Yes Clinical Impression/Diagnosis: Nausea and vomiting Qualifiers: Vomiting type: unspecified Vomiting Intractability: non-intractable Qualified Code(s): R11.2 - Nausea with vomiting, unspecified Breast cancer Qualifiers: Breast location: unspecified site of breast Estrogen receptor status: unspecified Patient sex: female Laterality: bilateral Qualified Code(s): C50.911 - Malignant neoplasm of unspecified site of right female breast; C50.912 - Malignant neoplasm of unspecified site of left female breast Condition: Improved Disposition: HOME - Admission No - Follow up/Referral Referrals: Madelin Rajan MD [Primary Care Provider] - - Patient Discharge Instructions Patient Printed Discharge Instructions: DI for Vomiting -- Adult Additional Instructions: You were seen in the ER today for nausea and vomiting. The results of your labs and imaging today were normal. Please follow-up with your primary care doctor within 1-2 days to discuss your visit and make sure your symptoms have improved. Please return to the ER if you have any worsening pain, development of fevers or chills, loss of consciousness, inability to tolerate food or fluids , or any other concerns. - Post Discharge Activity
[2019-08-12] MEDS ORDERED: FAMOTIDINE 20 MG/50 ML IVPB 20 MG/50 ML MG IVPB ONE ×2 (14:29→14:49)
[2019-08-12] MEDS ORDERED: SODIUM CHLORIDE 1,000 ML IV STA (14:29)
[2019-08-12] MEDS ORDERED: ONDANSETRON 4 MG/2 ML VIAL IVPUSH ONE (14:29)
--- NOTE | 2019-08-12 14:41 | PDOC ---
Attending Attestation - Resident Resident Name: Reena Rodriguez - HPI HPI: 08/12/19 15:18 pt presents to the ED complaining of non bloody, non bilious vomiting and epigastric abdominal pain. Denies fever, nausea or vomiting. Denies diarrhea. + multiple sick contacts with similar symptoms. + normal bowel movement today. 08/12/19 15:32 08/12/19 15:57 08/12/19 16:05 - Physicial Exam PE: 08/12/19 15:58 Agree with resident exam. PAtient is alert and oriented and in no acute distress. CV: rrr no murmurs. Abdomen; soft, non tender, non distended without guarding or rebound. - Medical Decision Making 08/12/19 16:04 Pt presents to the ED complaining of nausea and vomiting. Tachycardic on arrival to the ED, resolved after IV hydration. No abdominal tenderness on exam. No concern for obstruction, given that the patient has had normal bowel movements and is now tolerating PO. LAbs are within normal limits. Will discharge home with instructions to return to the ED for worsening symptoms. 08/12/19 16:05
[2019-08-12] MEDS ORDERED: ONDANSETRON 4 MG/2 ML VIAL ONE (14:49)
[2019-08-12 15:14] LABS: BASO % 0.3 % (0-2.0); EOS % 0.2 % (0-4.5); HEMATOCRIT 42.3 % (32.4-45.2); HEMOGLOBIN 13.8 GM/dL (10.7-15.3); LYMPH % 5.4 % (8-40); MCH 29.4 pg (25.7-33.7); MCHC 32.7 g/dl (32.0-36.0); MEAN CELL VOLUME 90.1 fl (80-96); MEAN PLT VOLUME 8.8 fl (7.5-11.1); MONO % 4.1 % (3.8-10.2); PLATELET COUNT 279 K/MM3 (134-434); RDW 14.9 % (11.6-15.6); WHITE BLOOD COUNT 8.8 K/mm3 (4.0-10.0)
[2019-08-12 15:50] LABS: ALBUMIN 3.6 g/dl (3.4-5.0); BILIRUBIN,TOTAL 0.5 mg/dL (0.2-1); BLOOD UREA NITROGEN 4.8 mg/dL (7-18); CALCIUM 9.3 mg/dL (8.5-10.1); CREATININE 0.7 mg/dL (0.55-1.3); POTASSIUM 4.8 mmol/L (3.5-5.1); TOT PROT 7.3 g/dl (6.4-8.2)
[2019-08-12 17:03] VITALS: BP 130/90; PULSE 95; TEMP 98.1
--- NOTE | 2019-08-13 13:40 | EKG ---
Test Reason : Blood Pressure : / mmHG Vent. Rate : 079 BPM Atrial Rate : 079 BPM P-R Int : 124 ms QRS Dur : 082 ms QT Int : 378 ms P-R-T Axes : 028 009 036 degrees QTc Int : 433 ms POOR DATA QUALITY, INTERPRETATION MAY BE ADVERSELY AFFECTED NORMAL SINUS RHYTHM NORMAL ECG WHEN COMPARED WITH ECG OF 02-AUG-2018 16:55, NO SIGNIFICANT CHANGE WAS FOUND Confirmed by DEEPTHI REED MD ([id number]) on 08/13/2019 1:39:45 PM Referred By: Confirmed By:DEEPTHI REED MD
== END 2019-08-12 16:00 | disposition home or self-care (01) ==
LOC: JER 14:06
PROC: 3E033GC Introduction of Other Therapeutic Substance into Peripheral Vein, Percutaneous Approach (ICD-10-PCS; principal; 2019-08-12)
PROC: 3E033GC Introduction of Other Therapeutic Substance into Peripheral Vein, Percutaneous Approach (ICD-10-PCS; 2019-08-12)
DX: C50.911 Malignant neoplasm of unspecified site of right female breast (principal); C50.912 Malignant neoplasm of unspecified site of left female breast; Z88.8 Allergy status to other drugs, medicaments and biological substances; Z91.018 Allergy to other foods; K21.9 Gastro-esophageal reflux disease without esophagitis; Z87.891 Personal history of nicotine dependence; G89.29 Other chronic pain; R73.03 Prediabetes
CPT/HCPCS: 36415; 80053; 82550; 83690; 84484; 85025; 93005; 93010; 99282-25; J7030

== ENCOUNTER 2019-09-10 08:33 | Day surgery (SDC) | payer OTHER ==
[2019-09-10 08:41] VITALS: BMI 32.3
--- NOTE | 2019-09-10 09:50 | PDOC ---
History of Present Illness - General Chief Complaint: Pain, Acute Stated Complaint: PAIN Time Seen by Provider: 09/10/19 08:49 - History of Present Illness Initial Comments: 09/10/19 09:56 59 yo F, with PMH of breast CA (s/p breast reconstruction), HTN, asthma, and gastritis (last endoscopy Oct 2018) who presents with wounds and leakage in her breast expanders for the past couple weeks. The patient saw Dr. Banks in the office who advised her to return to the ED if symptoms persisted. The patient reports that she has had persistent drainage from the wounds. She denies fevers , chest pain, shortness of breath, n/v/d/c or any other symptoms. ROS GENERAL/CONSTITUTIONAL: No fever or chills. No weakness. HEAD, EYES, EARS, NOSE AND THROAT: No sore throat. CARDIOVASCULAR: No chest pain or shortness of breath RESPIRATORY: No cough, wheezing, or hemoptysis. GASTROINTESTINAL: No nausea, vomiting, diarrhea or constipation. GENITOURINARY: No dysuria, frequency, or change in urination. MUSCULOSKELETAL: No joint or muscle swelling or pain. No neck or back pain. SKIN: No rash NEUROLOGIC: No headache, vertigo, loss of consciousness, or change in strength/ sensation. ENDOCRINE: No increased thirst. No abnormal weight change HEMATOLOGIC/LYMPHATIC: No anemia, easy bleeding, or history of blood clots. ALLERGIC/IMMUNOLOGIC: No hives or skin allergy. PE GENERAL: Awake, alert, and fully oriented, in no acute distress HEAD: No signs of trauma, normocephalic, atraumatic EYES: EOMI, sclera anicteric, conjunctiva clear ENT: oropharynx clear without exudates. Moist mucosa NECK: Normal ROM, supple LUNGS: No distress, speaks full sentences, clear to auscultation bilaterally HEART: Regular rate and rhythm, normal S1 and S2, no murmurs, rubs or gallops, peripheral pulses normal and equal bilaterally. CHEST: 4x2cm lesions under R breast with open wound with some purulence, L breast with erythema and calor with 2x3cm lesion w/ some purulence ABDOMEN: Soft, nontender. No guarding, no rebound. No masses EXTREMITIES : Normal inspection, Normal range of motion, no edema. No clubbing or cyanosis. NEUROLOGICAL: Cranial nerves II through XII grossly intact. Normal speech, no focal sensorimotor deficits SKIN: Warm, Dry, normal turgor, no rashes or lesions noted MDM DDX including but not limited to: abscess vs cellulitis ED Course: Dr. Banks called and informed of patient. Will come and see the patient in the ED pt taken to OR. Caridad Lora, PGY2 Emergency Medicine Past History - Past Medical History Allergies/Adverse Reactions: Allergies Allergy/AdvReac Type Severity Reaction Status Date / Time celecoxib [From Celebrex] Allergy stomach Verified 09/10/19 08:41 pain corn Allergy diarrhea Verified 09/10/19 08:41 duloxetine HCl Allergy Verified 09/10/19 08:41 [From Cymbalta] fentanyl [From Duragesic] Allergy Verified 09/10/19 08:41 gabapentin [From Neurontin] Allergy Verified 09/10/19 08:41 ibuprofen Allergy Swelling Verified 09/10/19 08:41 milk Allergy diarrhea Verified 09/10/19 08:41 NSAIDS (Non-Steroidal Allergy Difficulty Verified 09/10/19 08:41 Anti-Inflamma Breathing paroxetine HCl [From Paxil] Allergy Rash Verified 09/10/19 08:41 pregabalin [From Lyrica] Allergy Rash Verified 09/10/19 08:41 tapentadol HCl [From Nucynta] Allergy Rash Verified 09/10/19 08:41 wheat Allergy diarrhea Verified 09/10/19 08:41 acetaminophen AdvReac swelling, Verified 09/10/19 08:41 nausea, diarrhea baclofen AdvReac headache, Verified 09/10/19 08:41 incontinence nortriptyline AdvReac Rash Verified 09/10/19 08:41 Home Medications: Ambulatory Orders Cetirizine HCl [Zyrtec -] 10 mg PO DAILY 07/31/18 Albuterol Sulfate Inhaler - [Ventolin Hfa Inhaler -] 1 - 2 inh PO QID PRN Cannabidiol (Cbd) Extract [Epidiolex] 1 inh IH DAILY 10/18/18 Amitriptyline HCl [Elavil -] 50 mg PO HS 07/24/19 Cephalexin [Keflex] 500 mg PO TID 7 Days #30 capsule 07/24/19 Oxycodone HCl 15 mg PO QID PRN 7 Days tablet MDD 80 mg 07/24/19 Anemia: No Asthma: Yes (on inhaler) 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) Cardiac Disorders: No CVA: No COPD: No CHF: No Dementia: No Diabetes: Yes (pre diabetes- no meds) GI Disorders: Yes (GERD) Disorders: No HTN: No Hypercholesterolemia: No Liver Disease: Yes (fatty liver) Seizures: No Thyroid Disease: No - Surgical History Abdominal Surgery: Yes (HERNIA (later had mesh removal)) Appendectomy: Yes Cholecystectomy: Yes Orthopedic Surgery: No - Psycho Social/Smoking Cessation Hx Smoking History: Current some day smoker Have you smoked in the past 12 months: Yes If you are a former smoker, when did you quit?: 30 years ago Information on smoking cessation initiated: No Hx Alcohol Use: No Drug/Substance Use Hx: No (medical) Substance Use Type: Marijuana Hx Substance Use Treatment: No *Physical Exam - Vital Signs Last Vital Signs Temp Pulse Resp BP Pulse Ox 97.7 F 127 H 16 141/90 100 09/10/19 08:36 09/10/19 08:36 09/10/19 08:36 09/10/19 08:36 09/10/19 08:36 ED Treatment Course - LABORATORY CBC & Chemistry Diagram: 09/10/19 10:00 09/10/19 10:00 Discharge - Discharge Information Problems reviewed: Yes Clinical Impression/Diagnosis: Breast abscess, Cellulitis Condition: Stable Disposition: HOME - Follow up/Referral - Patient Discharge Instructions - Post Discharge Activity
[2019-09-10 10:13] LABS: EOS % 1.4 % (0-4.5); HEMATOCRIT 34.7 % (32.4-45.2); HEMOGLOBIN 11.2 GM/dL (10.7-15.3); LYMPH % 25.5 % (8-40); MCH 28.7 pg (25.7-33.7); MCHC 32.3 g/dl (32.0-36.0); MEAN CELL VOLUME 88.9 fl (80-96); MEAN PLT VOLUME 7.7 fl (7.5-11.1); MONO % 10.5 % (3.8-10.2); NEUT % 61.6 % (42.8-82.8); PLATELET COUNT 288 K/MM3 (134-434)
--- NOTE | 2019-09-10 10:16 | PDOC ---
Documentation entered by Aura Sherman SCRIBE, acting as scribe for Janine Vera MD. Janine Vera MD: This documentation has been prepared by the Whit hinton Brenda, SCRIBE, under my direction and personally reviewed by me in its entirety. I confirm that the documentation accurately reflects all work, treatment, procedures, and medical decision making performed by me. Attending Attestation - Resident Resident Name: Caridad Lora - ED Attending Attestation I have performed the following: I have examined & evaluated the patient, The case was reviewed & discussed with the resident, I agree w/resident's findings & plan, Exceptions are as noted - HPI HPI: 09/10/19 09:18 Ms. Jewell is a 59 year old female h/o HTN, asthma, gastritis, breast CA (left lumpectomy an sentinel node biopsy, adjuvant chemotherapy and radiation) s/p bilateral mastectomy and tissue frame aligner placement on 07/2019. Pt has a known infection of the tissue frame aligner area was seen by Dr banks who started her on antibiotics Pt states despite antibiotics, the inferior area of the right breast is erythematous and now has a skin opening from which the tissue frame aligner is extruding. The patient denies chest pain, shortness of breath, headache and dizziness. Denies fever, chills, nausea, vomiting, diarrhea and constipation. Denies dysuria, frequency, urgency and hematuria. Allergies: Per EMR Social: Medical marijuna. Pt denies any other cigarette, alcohol, or drug use. Surgical: breast reconstruction, hysterectomy, appendectomy, cholecystectomy PCP: Dr. Rajan Heme/Onc: Dr. Mcallister GI: Dr. Méndez 09/10/19 09:52 - Physicial Exam PE: 09/10/19 10:12 GENERAL: The patient is in no acute distress. ENT: Ears normal, nares patent, oropharynx clear without exudates. Moist mucous membranes. NECK: Normal range of motion, supple LUNGS: Breath sounds equal, clear to auscultation bilaterally. No wheezes, and no crackles. HEART:Regular rate and rhythm, normal S1 and S2 without murmur, rub or gallop. ABDOMEN: Soft, nontender, normoactive bowel sounds. EXTREMITIES: Normal range of motion, no edema. NEUROLOGICAL: Cranial nerves II through XII grossly intact. Normal speech. No focal neurological deficits. SKIN: Right breast, inferior portion of the breast erythematous, skin open, tissue frame aligner extruding - Medical Decision Making 09/10/19 10:14 59 yo F s/p bilateral mastectomy and placement of tissue expanders Now with local infection and tissue frame aligner extrusion Will do: pre op labs Contact Dr Banks 09/10/19 10:59 Laboratory Tests 09/10/19 09/10/19 09/10/19 10:00 10:00 10:00 WBC 5.0 Hgb 11.2 Hct 34.7 D Plt Count 288 INR 1.11 H BUN 4.2 L Creatinine 0.6 EKG: Twelve-lead EKG was performed and reviewed by me. There is normal sinus rhythm with a normal rate of 79 bpm. The axis is normal. The intervals are normal. There are no ST or T wave abnormalities. Impression: Normal twelve-lead EKG Pt seen in the ER by Dr. Banks He will take patient directly to the OR Pt admitted to [facility] Clinical impression: local wound infection, initial presentation tissue frame aligner extrusion, initial presentation
[2019-09-10 10:27] LABS: INR 1.11 (0.83-1.09); PROTHROMBIN TIME (PATIENT) 13.1 SEC (9.7-13.0)
[2019-09-10 10:29] LABS: ACTIVATED PTT 32.6 SECONDS (25.2-36.5)
[2019-09-10 10:49] LABS: ALBUMIN 2.6 g/dl (3.4-5.0); BILIRUBIN,TOTAL 0.3 mg/dL (0.2-1); BLOOD UREA NITROGEN 4.2 mg/dL (7-18); CALCIUM 8.7 mg/dL (8.5-10.1); CREATININE 0.6 mg/dL (0.55-1.3); POTASSIUM 4.6 mmol/L (3.5-5.1); TOT PROT 6.3 g/dl (6.4-8.2)
--- NOTE | 2019-09-10 11:20 | CONSULT ---
Consult Consult Specialty:: Plastic Surgery - Alcohol/Substance Use Hx Alcohol Use: No - Smoking History Smoking history: Current some day smoker Have you smoked in the past 12 months: Yes If you are a former smoker, when did you quit?: 30 years ago Home Medications - Allergies Allergies/Adverse Reactions: Allergies Allergy/AdvReac Type Severity Reaction Status Date / Time celecoxib [From Celebrex] Allergy stomach Verified 09/10/19 08:41 pain corn Allergy diarrhea Verified 09/10/19 08:41 duloxetine HCl Allergy Verified 09/10/19 08:41 [From Cymbalta] fentanyl [From Duragesic] Allergy Verified 09/10/19 08:41 gabapentin [From Neurontin] Allergy Verified 09/10/19 08:41 ibuprofen Allergy Swelling Verified 09/10/19 08:41 milk Allergy diarrhea Verified 09/10/19 08:41 NSAIDS (Non-Steroidal Allergy Difficulty Verified 09/10/19 08:41 Anti-Inflamma Breathing paroxetine HCl [From Paxil] Allergy Rash Verified 09/10/19 08:41 pregabalin [From Lyrica] Allergy Rash Verified 09/10/19 08:41 tapentadol HCl [From Nucynta] Allergy Rash Verified 09/10/19 08:41 wheat Allergy diarrhea Verified 09/10/19 08:41 acetaminophen AdvReac swelling, Verified 09/10/19 08:41 nausea, diarrhea baclofen AdvReac headache, Verified 09/10/19 08:41 incontinence nortriptyline AdvReac Rash Verified 09/10/19 08:41 - Home Medications Home Medications: Ambulatory Orders Cetirizine HCl [Zyrtec -] 10 mg PO DAILY 07/31/18 Albuterol Sulfate Inhaler - [Ventolin Hfa Inhaler -] 1 - 2 inh PO QID PRN Cannabidiol (Cbd) Extract [Epidiolex] 1 inh IH DAILY 10/18/18 Amitriptyline HCl [Elavil -] 50 mg PO HS 07/24/19 Cephalexin [Keflex] 500 mg PO TID 7 Days #30 capsule 07/24/19 Oxycodone HCl 15 mg PO QID PRN 7 Days tablet MDD 80 mg 07/24/19 Physical Exam Vital Signs: Vital Signs Temperature 97.7 F 09/10/19 08:36 Pulse Rate 127 H 01/06/20 08:36 Respiratory Rate 16 09/10/19 08:36 Blood Pressure 141/90 09/10/19 08:36 O2 Sat by Pulse Oximetry (%) 100 09/10/19 08:36 Labs: CBC, BMP 09/10/19 10:00 09/10/19 10:00 Assessment/Plan Patient well known to me. S/P bilateral Mastectomies through Abarca Pattern scars. Patient subsequently had some epidermolysis of lateral flaps bilaterally. No expansion was done and, as skin wounds were healing, seromas developed bilaterally. Seromas persisted and were drained several times as an attempt to treat conservatively. She now presents with an open draining wound on the right with a folded corner of the tissue mold breaker extending through the wound. There is a large recurrent seroma with erythema on the left. Removing both tissue expanders was discussed at length with the patient and her and this procedure has now become urgent due to the obvious draining infection on the right and infected seroma on the left. Plan for OR today.
[2019-09-10] MEDS ORDERED: MIDAZOLAM HCL 2 MG/2 ML SINGLE DOSE VIAL ONE (12:23)
[2019-09-10] MEDS ORDERED: SUCCINYLCHOLINE CHLORIDE 200 MG/10 ML SYRINGE ONE (12:24)
[2019-09-10] MEDS ORDERED: PROPOFOL 20 ML ONE (12:24)
--- NOTE | 2019-09-10 13:20 | EKG ---
Test Reason : Blood Pressure : / mmHG Vent. Rate : 079 BPM Atrial Rate : 079 BPM P-R Int : 128 ms QRS Dur : 084 ms QT Int : 374 ms P-R-T Axes : 048 005 038 degrees QTc Int : 428 ms SINUS RHYTHM WITH PREMATURE ATRIAL COMPLEXES OTHERWISE NORMAL ECG WHEN COMPARED WITH ECG OF 12-AUG-2019 15:25, PREMATURE ATRIAL COMPLEXES ARE NOW PRESENT Confirmed by JOO CAVANAUGH MD ([id number]) on 09/10/2019 1:19:27 PM Referred By: Confirmed By:JOO CAVANAUGH MD
[2019-09-10] MEDS ORDERED: ceFAZolin SODIUM 1 GM VIAL IVPB ONE (13:40)
[2019-09-10] MEDS ORDERED: ONDANSETRON 4 MG/2 ML VIAL IVPUSH PRN (14:24)
[2019-09-10] MEDS ORDERED: LACTATED RINGERS SOLUTION 1,000 ML IV SCH (14:30)
--- NOTE | 2019-09-10 14:42 | OP ---
Operative Note - Note: Operative Date: 09/10/19 Pre-Operative Diagnosis: Infected Seroma Left Breast, Open Wound Right Breast with Exposed Tissue Pulling Unit Operator Operation: Exploration Left and Right Reconstructed Breasts, Removal of Tissue Expanders, Debridement of Alloderm Post-Operative Diagnosis: Same as Pre-op Surgeon: Chung Banks Anesthesia: General Specimens Removed: Tissue Expanders x 2, Debrided Alloderm Operative Report Dictated: Yes
[2019-09-10 16:24] VITALS: TEMP 97.6
[2019-09-10 16:43] VITALS: BP 131/84; PULSE 73
--- NOTE | 2019-09-11 12:35 | OP ---
DATE OF OPERATION: 09/10/2019 PREOPERATIVE DIAGNOSIS: Infected seroma, left breast and open wound, right breast with exposed tissue business office coordinator. POSTOPERATIVE DIAGNOSIS: Infected seroma, left breast and open wound, right breast with exposed tissue business office coordinator. PROCEDURE PERFORMED: Exploration of left and right reconstructed breasts, removal of left and right breast tissue expanders, and debridement of Alloderm, left and right breasts. SURGEON: Chung Main MD ANESTHESIA: General via LMA. DESCRIPTION OF PROCEDURE: The patient was on the operating table in supine position, and general anesthesia was administered by the anesthesiologist. The area of the chest was prepped and draped in the usual sterile fashion. The right breast was addressed 1st, and this breast had presented with an open wound at the 6 o'clock position of the inframammary fold lateral to the Abarca pattern trifurcation point, and the incision was extended both medially and laterally facilitating removal of the business office coordinator. The pocket was then irrigated and explored, and most of the previously placed Alloderm was found to be unincorporated. The Alloderm was then debrided, and pocket was irrigated copiously with saline solution. The pocket was further explored, and no further collections of fluid or purulent material were appreciated. A 15-Slovenian round Jayden-Reyes drain was inserted through a separate stab incision in the anterior axillary line and sutured in place with a 3-0 nylon suture. The wound was then closed in similar fashion with 3-0 nylon sutures in interrupted horizontal mattress fashion. The left breast was then explored, and an 8-cm inframammary incision was made, and approximately 500 mL of serous fluid was drained. The tissue business office coordinator was removed without difficulty, and the pocket was explored. Multiple areas of thick, fibrinous material were removed, and several areas of unincorporated Alloderm were removed as well. This pocket was similarly irrigated with saline solution, and a No. 15-Slovenian Jayden-Reyes drain was inserted through a separate stab incision in the anterior axillary line. The drain was sutured in place with 3-0 nylon suture, and the inframammary wound was closed simply with 3-0 nylon suture. The patient was then awoken from anesthesia without any difficulty and taken from the operating room to the recovery room in satisfactory condition having tolerated the procedure well. CHUNG MAIN M.D. /[id number]
== END 2019-09-10 16:50 | disposition home or self-care (01) ==
LOC: JER 08:33 → JASUSAT 11:14
PROVIDERS: ATTEND Plastic Surgery
PROC: 0HPT0NZ Removal of Tissue Expander from Right Breast, Open Approach (ICD-10-PCS; 2019-09-10)
PROC: 0JB60ZZ Excision of Chest Subcutaneous Tissue and Fascia, Open Approach (ICD-10-PCS; 2019-09-10)
PROC: 0HPU0NZ Removal of Tissue Expander from Left Breast, Open Approach (ICD-10-PCS; principal; 2019-09-10 13:00)
DX: S21.002A Unspecified open wound of left breast, initial encounter (principal); T85.49XA Other mechanical complication of breast prosthesis and implant, initial encounter; L08.9 Local infection of the skin and subcutaneous tissue, unspecified; X58.XXXA Exposure to other specified factors, initial encounter; Y82.8 Other medical devices associated with adverse incidents; Y92.9 Unspecified place or not applicable
CPT/HCPCS: 36415; 71045-TC-FY; 80053; 85025; 85610; 85730; 86850; 86900; 86901; 87070; 87075; 87186; 87205; 93005; 93010; 94760; 99284-25